=== PATIENT | female | born 1960 | race Caucasian/White ===

== ENCOUNTER 2017-06-23 23:34 | Emergency (ER) | payer OTHER ==
[~2017-06-23 23:34] MED LIST: DICL75 PO; FISH100020 OR; FLAX10008; REST0.05 OU; TAB-TAB PO; [UNRECOGNIZED DRUG - CODE] PO
[2017-06-24 00:12] VITALS: BP 146/81; PULSE 74; RESP 15; TEMP 98.1; O2SAT 95
[2017-06-24] MEDS ORDERED: REST0.05 EACH EYE (00:17)
--- NOTE | 2017-06-24 01:59 | RADRPT ---
EXAM DATE/TIME: 06/24/2017 01:41 [place] COMPARISON: No previous studies available for comparison. INDICATIONS : Right ankle pain post fall down stairs one hour ago MEDICAL HISTORY : None. SURGICAL HISTORY : None. ENCOUNTER: Initial ACUITY: 1 day PAIN SCORE: 8/10 LOCATION: Right lateral ankle FINDINGS: The bone density is normal joint space widths are intact. Plantar and posterior calcaneal enthesophyt e formation. Ankle mortise is approximated. On the lateral view there is slight dorsal soft tissue pr ominence at the level of the talus, and a small linear ossific density is seen dorsal talar surface. A small acute fracture fragment is not excluded. These correlate for point tenderness. CONCLUSION: Cannot exclude a small chip fragment off the dorsal surface of the talus. Correlate for point tendern ess. Azam Pitt MD on June 24, 2017 at 1:55 Board Certified Radiologist. This report was verified electronically.
--- NOTE | 2017-06-24 02:56 | PD ---
HPI Chief Complaint: Musculoskeletal Complaint Time Seen by Provider: 02:39 Travel History International Travel<30 days: No Contact w/Intl Traveler<30days: No Traveled to known affect area: No History of Present Illness HPI The patient is a 56-year-old female that fell at approximately 2300 tonight. She complains of pain on the insertion of the Peroneous tertius muscle on the right ankle. She denies any other pain. This was an inversion injury. PFSH Past Medical History Medical History: Denies Significant Hx Diminished Hearing: No Influenza Vaccination: Yes ?: Not Menopausal: Yes : 1 Para: 1 Ovarian Cysts: Yes Past Surgical History Eye Surgery: Yes (LASIK) Tonsillectomy: Yes Social History Alcohol Use: Yes (OCC) Tobacco Use: No Substance Use: No Allergies-Medications (Allergen,Severity, Reaction): Coded Allergies: No Known Allergies (Verified Adverse Reaction, Unknown, 06/24/17) Reported Meds & Prescriptions Reported Meds & Active Scripts Active Reported Restasis Opth (Cyclosporine Opth) 0.05% Emul 1 Drop EACH EYE BID Review of Systems Except as stated in HPI: all other systems reviewed are Neg Physical Exam Narrative GENERAL: The patient is alert, oriented 3 in minimal apparent distress with her pain on the dorsolateral aspect of her right foot. The vital signs are normal except for blood pressure 146/81. SKIN: Focused skin assessment warm/dry. HEAD: Atraumatic. Normocephalic. EYES: Pupils equal and round. No scleral icterus. No injection or drainage. ENT: No nasal bleeding or discharge. Mucous membranes pink and moist. NECK: Trachea midline. No JVD. CARDIOVASCULAR: Regular rate and rhythm. No murmur appreciated. RESPIRATORY: No accessory muscle use. Clear to auscultation. Breath sounds equal bilaterally. GASTROINTESTINAL: Abdomen soft, non-tender, nondistended. Hepatic and splenic margins not palpable. MUSCULOSKELETAL: No obvious deformities. No clubbing. No cyanosis. No edema. The patient has no tenderness on the dorsum of the talus. There is a flare of calcium in this area on x-ray and she is not tender over this area. She is only tender and there is ecchymoses noted at the insertion of the peroneus tertius muscle NEUROLOGICAL: Awake and alert. No obvious cranial nerve deficits. Motor grossly within normal limits. Normal speech. PSYCHIATRIC: Appropriate mood and affect; insight and judgment normal. Data Data Last Documented VS Vital Signs Date Time Temp Pulse Resp B/P (MAP) Pulse Ox O2 Delivery O2 Flow Rate FiO2 06/24/17 00:12 98.1 74 15 146/81 (102) 95 Orders Orders Ankle, Complete ([id number]) (06/24/17 ) MDM Medical Decision Making Medical Screen Exam Complete: Yes Emergency Medical Condition: Yes Medical Record Reviewed: Yes Interpretation(s) X-rays show a flare of calcium on the dorsum of the talus but no definite fracture or dislocation. Differential Diagnosis avulsion fracture talus, Peroneus tertius strain, ankle sprain, ankle fracture Narrative Course The patient has a Peroneus tertius strain. She needs to rest, use ice pack for the next 24-48 hours, Silver bandage. The patient states she has all these at home and does not need anything from here. She also has crutches at home should she need those. Diagnosis Primary Impression: Muscle strain of right ankle Additional Instructions: You may need crutches initially. An Silver bandage is helpful and ice pack may be useful in the next 24 hours. Stay off your ankle as best as possible and don't do anything that makes it become painful. Take Motrin [id number] 600 mg 3 times daily. Elevation may help the swelling becomes a problem. Med/Other Pt SpecificInfo: No Change to Meds Disposition: 01 DISCHARGE HOME Condition: Stable Ronen Murphy MD Jun 24, 2017 02:56
== END 2017-06-24 02:48 | disposition home or self-care (01) ==
LOC: PHED 23:34
DX: S96.911A Strain of unspecified muscle and tendon at ankle and foot level, right foot, initial encounter (principal); W19.XXXA Unspecified fall, initial encounter
CPT/HCPCS: 73610; 99283